=== PATIENT | female | born 1960 | race Caucasian/White ===

== ENCOUNTER 2021-04-09 08:12 | Emergency (ER) | payer OTHER ==
[2021-04-09 08:34] LABS: BASOPHIL 0.6 % (0-2); EOSINOPHIL 2.8 % (0-5); HCT 43.7 % (37.0-47.0); HGB 14.2 g/dl (12.5-16.0); LYMPHOCYTE 46.9 % (15-48); MCH 29.3 pg (25.0-31.0); MCHC 32.5 g/dL (32.0-36.0); MCV 90.3 fL (78.0-100.0); MONOCYTE 8.2 % (0-12); MPV 10.7 fL (6.0-9.5); NEUTROPHIL 41.1 % (41-80); NRBC 0; PLT 348 K/uL (150-400); RBC 4.84 M/uL (4.20-5.40); RDW 12.9 % (11.5-14.0); WBC 8.1 K/uL (4.0-10.5)
[2021-04-09 08:52] LABS: ALBUMIN 4.1 g/dL (3.4-5.0); BILIRUBIN - TOTAL 0.4 mg/dL (0.2-1.0); CREATININE 0.75 mg/dL (0.51-0.95); GLOBULIN (CALCULATION) 4.3 g/dL; INR 0.94 (0.9-1.2); POTASSIUM 3.6 mmol/L (3.5-5.1); PTT 26.8 SECONDS (24.4-34.7); TOTAL PROTEIN 8.4 g/dL (6.4-8.2)
[2021-04-09] MEDS ORDERED: CARAFATE S500 MG/TSP PO (09:59)
== END 2021-04-09 10:32 | disposition home or self-care (01) ==
LOC: FER 08:12
PROVIDERS: Emergency Medicine
DX: K21.00 Gastro-esophageal reflux disease with esophagitis, without bleeding (principal); K22.4 Dyskinesia of esophagus
CPT/HCPCS: 36415; 71045; 80053; 84484; 85025; 85610; 85730; 93005